=== PATIENT | female | born 1975 | race Hispanic/Latino ===

== ENCOUNTER → 2017-04-29 | Outpatient (CLI) | payer OTHER ==
--- NOTE | 2017-05-06 08:20 | Diagnostic Imaging Report ---
#[id number] - [facility] #BILATERAL DIGITAL SCREENING MAMMOGRAM WITH CAD: 04/29/2017 CLINICAL: Routine screening. Baseline exam. No prior exams were available for comparison. Current study contains 4 films. The tissue of both breasts is heterogeneously dense. This may lower the sensitivity of mammography. Current study was also evaluated with a Computer Aided Detection (CAD) system. There are benign calcifications in both breasts. No significant masses, calcifications, or other findings are seen in either breast. IMPRESSION: BENIGN There is no mammographic evidence of malignancy. A 1 year screening mammogram is recommended. The patient will be notified by letter of the results. Alexis owng/homar:05/05/2017 10:47:57 Service Developer: Tracy GONSALVES)([place]), [facility] letter sent: Normal Exam Mammogram BI-RADS: 2 Benign
== END ==
LOC: MAMMO 10:24
PROVIDERS: ATTEND Internal Medicine
DX: Z12.31 Encounter for screening mammogram for malignant neoplasm of breast (principal)

== ENCOUNTER 2017-06-08 22:12 | Emergency (ER) | payer OTHER ==
[~2017-06-08] VITALS: Ht 154.9 cm; Wt 102.1 kg
--- OUTSIDE RECORDS SUMMARY | 2017-06-08 22:15 | XMS REPORT ---
Author Author [facility] Address Unknown Phone Unavailable Care Team Providers Care [place]anchard Grinder Operator Name Role Phone TIM TREVIÑO Unavailable Unavailable Problems This patient has no known problems. Allergies, Adverse Reactions, Alerts This patient has no known allergies or adverse reactions. Medications This patient has no known medications. Results Test Description Test Time Test Comments Text Results Atomic Results Result Comments MAMMOGRAM DIGITAL SCR BI [place] [address] Patient Name: CAYETANO ANTONIO MR #: [id number] : 1975 Age/Sex: 41/F Req #: [id number] Adm Physician: Ordered by: TIM TREVIÑO MD Report #: [id number] Location: MAMMO Room/Bed: Procedure: [id number] MG/MAMMOGRAM DIGITAL SCR BI Exam Date: Exam Time: 1046 REPORT STATUS: Signed #[id number] - [facility] #BILATERAL DIGITAL SCREENING MAMMOGRAM WITH CAD: CLINICAL: Routine screening. Baseline exam. No prior exams were available for comparison. Current study contains 4 films. The tissue of both breasts is heterogeneously dense. This may lower the sensitivity of mammography. Current study was also evaluated with a Computer Aided Detection (CAD) system. There are benign calcifications in both breasts. No significant masses, calcifications, or other findings are seen in either breast. IMPRESSION: BENIGN There is no mammographic evidence of malignancy. A 1 year screening mammogram is recommended. The patient will be notified by letter of the results. Jon wong/cristel:05/05/2017 10:47:57 Toe Pounder: Tracy GONSALVES )([place]), [facility] letter sent: Normal Exam Mammogram BI-RADS: 2 Benign Dictated By: JON WALLIS DO 1047 Transcribed By: CRISTEL on 1047 COPY TO: TIM TREVIÑO MD
[2017-06-08 22:34] LABS: BASOPHILS # (AUTO) 0.1 (0.0-0.1); BASOPHILS % 0.7 % (0.0-1.0); EOSINOPHILS # (AUTO) 0.2 (0.0-0.4); EOSINOPHILS % 1.9 % (0.0-6.0); HEMATOCRIT 37.6 % (34.2-44.1); HEMOGLOBIN 12.7 g/dL (12.0-16.0); LYMPHOCYTES # (AUTO) 4.4 (1.0-3.2); LYMPHOCYTES % 40.7 % (18.0-39.1); MEAN CORPUSCULAR HEMOGLOBIN 30.8 pg (28-32); MEAN CORPUSCULAR HGB CONC 33.8 g/dL (31-35); MONOCYTES # (AUTO) 0.7 (0.2-0.8); NEUTROPHILS # (AUTO) 5.5 (2.1-6.9); NEUTROPHILS % 50.4 % (38.7-80.0); PLATELET COUNT 249 x10e3/uL (140-360); RED BLOOD COUNT 4.13 x10e6/uL (3.6-5.1)
== END 2017-06-09 00:25 | disposition home or self-care (01) ==
LOC: ER 22:12
DX: N93.8 Other specified abnormal uterine and vaginal bleeding (principal)
CPT/HCPCS: 36415; 84702; 85025; 99284

== ENCOUNTER 2019-05-07 13:17 | Emergency (ER) | payer BC, OTHER ==
[~2019-05-07] VITALS: Ht 154.9 cm; Wt 102.1 kg
[2019-05-07] MEDS ORDERED: ACETAMINOPHEN/CODEINE 300MG - 30MG TAB PO NR (13:30)
--- NOTE | 2019-05-07 14:20 | Diagnostic Imaging Report ---
Exam: Left knee radiographs-3 views History: Pain. Comparison: None. Findings: No evidence of acute fracture, malalignment, or soft tissue abnormality. Impression: No acute radiographic abnormality. Signed by: Dr. Devan Tate MD on 05/07/2019 2:18 PM
== END 2019-05-07 14:55 | disposition home or self-care (01) ==
LOC: ER 13:17
DX: M25.562 Pain in left knee (principal); X50.3XXA Overexertion from repetitive movements, initial encounter; Y92.811 Bus as the place of occurrence of the external cause; Y99.0 Civilian activity done for income or pay
CPT/HCPCS: 99283

== ENCOUNTER 2021-01-09 15:00 | Outpatient (RCR) | payer BC | END 2021-01-29 | LOC: PT 15:00 | PROVIDERS: ATTEND Podiatrist Foot & Ankle Surgery | DX: M76.70 Peroneal tendinitis, unspecified leg (principal) ==

== ENCOUNTER → 2021-06-20 | Outpatient (CLI) | payer BC | LOC: MAMMO 09:54 | PROVIDERS: ATTEND Obstetrics & Gynecology Reproductive Endocrinology | DX: N63.10 Unspecified lump in the right breast, unspecified quadrant (principal) | CPT/HCPCS: 77066 ==

== ENCOUNTER 2022-04-01 20:36 | Emergency (ER) | payer BC ==
[~2022-04-01] VITALS: Ht 154.9 cm; Wt 113.4 kg
[2022-04-01] MEDS ORDERED: KETOROLAC TROMETHAMINE 30 MG/ML VIAL IV STA (21:28)
[2022-04-01] MEDS ORDERED: KETOROLAC TROMETHAMINE 30 MG/ML VIAL ONE (22:05)
[2022-04-01] MEDS ORDERED: NAPROSYN500 MG PO (22:33)
[2022-04-01] MEDS ORDERED: CYCLOBENZAPRINE10 MG PO (22:34)
[2022-04-01 22:53] VITALS: BP 129/59
== END 2022-04-01 22:53 | disposition home or self-care (01) ==
LOC: FSED 20:41
DX: R31.29 Other microscopic hematuria (principal); M54.16 Radiculopathy, lumbar region; K76.0 Fatty (change of) liver, not elsewhere classified; E28.2 Polycystic ovarian syndrome; J45.909 Unspecified asthma, uncomplicated; F90.9 Attention-deficit hyperactivity disorder, unspecified type
CPT/HCPCS: 74176; 81003; 81025; 96374; 99284; J1885